=== PATIENT | male | born 1950 | race Caucasian/White ===

== ENCOUNTER 2023-09-01 06:38 | Outpatient (CLI) | payer BC, SELFPAY ==
--- NOTE | 2023-09-01 06:45 | USCV_ITS ---
Burton Aguilar Age: 73 Gender: M : 1950 Exam Date: 09/01/2023 07:55 Ordering Phys: Niraj Garcia MD Technologist: GRAHAM [place] [facility] [place]: LEFT EYE DISTURBANCE Risk Factors: Previous Vascular Surgery: Right Brachial BP: / Left Brachial BP: / Right Left Velocity (cm/s) Spectral Plaque Velocity (cm/s) Spectral Plaque Syst/Diast Broadening Syst/Diast Broadening 108.10/38.70 Prox CCA 79.40 / 18.30 124.50/53.30 Mid CCA 88.10 / 23.20 126.30/49.60 Distal CCA 76.20 / 20.50 161.50/55.90 Prox ICA / 113.00/49.30 Mid ICA / 101.40/43.90 Distal ICA / 115.00 ECA 128.00 1.30 ICA/CCA Antegrade Vertebral Antegrade 46.20/ 18.00 cm/s 58.70/ 22.80 cm/s Tri Subclavian Tri 134.8 97.50 0 CONCLUSIONS LEFT ICA is occluded just distal to bifurcation and remains occluded in the mid and distal segments. CCA is patent Recommend CTA Head and Neck Right ICA stenosis 50-69%. Moderate atheromatous plaque right carotid bulb/ICA. Normal antegrade Doppler flow noted in the right vertebral artery. Normal antegrade Doppler flow noted in the left vertebral artery. Intimal thickening in the common carotid arteries and internal carotid arteries bilaterally. D/w Dr. Troy Garcia at 0845 09/01/23 Mikey Norton MD (Electronically Signed) Final Date: 01 September 2023 08:46 S
== END 2023-09-01 06:39 | disposition home or self-care (01) ==
LOC: RAD 06:38
PROVIDERS: Visit Provider Student in an Organized Health Care Education/Training Program
DX: H34.232 Retinal artery branch occlusion, left eye (principal); I65.23 Occlusion and stenosis of bilateral carotid arteries
CPT/HCPCS: 93880

== ENCOUNTER 2023-09-02 13:15 | Outpatient (CLI) | payer BC, SELFPAY ==
--- NOTE | 2023-09-02 13:38 | CT_ITS ---
WS: [id number] CTA HEAD AND NECK TECHNIQUE: Contrast enhanced CTA of the head and neck with coronal and sagittal reformatted images an d maximum intensity projection (MIP) images. NASCET criteria utilized. CLINICAL INFORMATION: OCCLUSION STENOSIS OF LEFT CAROTID ARTERY COMPARISON: Ultrasound 09/01/2023 DLP: 1268.[address] scans at [facility] use at least one of these dose optimization techniques: automated e xposure control; mA and/or kV adjustment per patient size (includes targeted exams where dose is matc hed to clinical indication); or iterative reconstruction. FINDINGS: No evidence intracranial hemorrhage or mass effect. Ventricular system and basal cisterns a re patent. Normal berman-white differentiation. Paranasal sinuses and mastoid air cells are well aerate d. Normal posterior nasopharynx. RIGHT: RIGHT common carotid artery is patent. No significant RIGHT ICA stenosis. Mild atheromatous pl aque RIGHT carotid bulb extending into the ICA. RIGHT ICA is patent to the skull base. Cavernous salmeron tid artery is patent. LEFT: LEFT common carotid artery is patent. LEFT ICA is occluded at the bifurcation with calcified atheromatous plaque. ECA remains patent. LEFT ICA remains occluded to the skull base. LEFT petrous an d cavernous segments are occluded. Reconstitution of the supraclinoid ICA due to cross-filling via a patent anterior communicating artery. Normal vascularity to the LEFT MCA territory. INTRACRANIAL CTA: Normal vascularity to the TANGELA and MCA territories bilaterally. No evidence of high-grade proximal s tenosis or aneurysm. Codominant and patent vertebral arteries bilaterally. Basilar artery is patent. Normal vascularity to the NEONATOLOGIST territory bilaterally. Fibrosis in the lung apices. Paranasal sinuses and mastoid air cells are well aerated. Moderate spond ylitic changes cervical spine. Slight anterolisthesis C3 on C4. Disc space narrowing worse at C5-C6 a nd C6-C7 with disc osteophyte complexes. CT/CT angio headneck* [id number] IMPRESSION: 1. LEFT ICA is occluded at the origin and remains occluded to the skull base. 2. Reconstitution of the LEFT supraclinoid ICA with normal vascularity to the LEFT MCA territory. Cross-filling via a patent anterior communicating artery. 3. No significant RIGHT ICA stenosis. 4. Codominant and patent vertebral arteries bilaterally. Basilar artery is pat ent. 5. No other acute findings.
[2023-09-02 14:59] LABS: Blood Urea Nitrogen 25 mg/dL (8-23)
[2023-09-02] MEDS: iohexol 350 mg/mL 500 mL Btl (per mL) IV (15:45)
== END 2023-09-02 13:16 | disposition home or self-care (01) ==
LOC: RAD 13:15
PROVIDERS: Visit Provider Ophthalmology
DX: I65.22 Occlusion and stenosis of left carotid artery (principal); H34.232 Retinal artery branch occlusion, left eye; J84.10 Pulmonary fibrosis, unspecified; M47.812 Spondylosis without myelopathy or radiculopathy, cervical region; M25.78 Osteophyte, vertebrae
CPT/HCPCS: 70496; 70498; 82565; 84520; Q9967

== ENCOUNTER 2023-09-25 12:03 | Outpatient (CLI) | payer BC, SELFPAY ==
--- NOTE | 2023-09-25 | ECG_ITS ---
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 Interpretive Statements NAME OF STUDY: TREADMILL STRESS TEST INDICATION: [Dyspena on Exertion] EXERCISE DATA: The patient was exercised by Del protocol. Baseline heart rate was 94 beats per minute. Baseline blood pressure was 157/84 millimeters of mercury. Maximal predicted heart rate was 148 beats per minute. Maximum heart rate achieved was 156, which was 105% of the maximum predicted heart rate. Maximum blood pressure was 205/66 millimeters of mercury. Total exercise time was 8 minutes and 38 seconds. Maximum METs achieved was 10.2. The reason for ending the test was completion of protocol. The patient complained of shortness of breath during the stress test, which then resolved at the end of the test. ELECTROCARDIOGRAM: BASELINE: Showed sinus rhythm, normal axis, no significant ST-T changes at the baseline noted. [] EXERCISE: At the peak exercise level, [] No significant ST-T changes suggestive of ischemia noted. [] RECOVERY: During the recovery period, heart rate dropped appropriately. No significant ST-T changes in the recovery suggestive of ischemia noted. [] CONCLUSION: 1. Exercise capacity excellent. 2. Heart rate response was appropriate 3. Blood pressure response was hypertensive 4. Symptoms not suggestive of ischemia. 5. Stress test not indicative of ischemia Electronically Signed On 10-16-2023 13:40:29 CDT by Donovan Medina M.D. [email or web address]
[2023-09-25 12:15] VITALS: BMI 23.6
[2023-09-25 13:39] VITALS: BP 126/64; PULSE 106
== END 2023-09-25 12:04 | disposition home or self-care (01) ==
LOC: CDL 12:03
PROVIDERS: PCP Family Medicine; Visit Provider Family Medicine
DX: R06.09 Other forms of dyspnea (principal); R94.39 Abnormal result of other cardiovascular function study
CPT/HCPCS: 93017

== ENCOUNTER 2023-12-22 08:14 | Outpatient (CLI) | payer BC, SELFPAY | END 2023-12-22 08:15 | disposition home or self-care (01) | PROVIDERS: PCP Family Medicine; Visit Provider Family Medicine | DX: R06.09 Other forms of dyspnea (principal) | CPT/HCPCS: 94010; 94726; 94729 ==

== ENCOUNTER → 2024-02-25 15:00 | Outpatient (BNVA) | payer BC, SELFPAY | PROVIDERS: PCP Family Medicine; Referring Provider Family Medicine; Visit Provider Internal Medicine | DX: R07.9 Chest pain, unspecified (principal) | CPT/HCPCS: 93005 ==

== ENCOUNTER 2024-03-21 14:05 | Outpatient (CLI) | payer BC, SELFPAY ==
--- NOTE | 2024-03-21 14:15 | USCV_ITS ---
Jeff Burton Age: 73 Gender: M : 1950 Exam Date: 03/21/2024 14:19 Ordering Phys: Donovan Medina M.D ([email or web address]) Technologist: GRAHAM Exam Location: [facility] [place] Indication: CHEST PAIN AND SHORTNESS OF BREATH BP: 130 / 70 HR: 64 Rhythm: Sinus Technical Quality: Adequate MEASUREMENTS (Male / Female) Normal Values 2D ECHO LV Diastolic Diameter PLAX 3.9 cm 4.2 - 5.9 / 3.9 - 5.3 cm IVS Diastolic Thickness 1.1 cm 0.6 - 1.0 / 0.6 - 0.9 cm IVS Systolic Thickness 1.4 cm LVPW Diastolic Thickness 1.4 cm 0.6 - 1.0 / 0.6 - 0.9 cm LVPW Systolic Thickness 1.9 cm LVOT Diameter 2.0 cm LV Ejection Fraction 2D Teich 67.5 % LV Ejection Fraction MOD 4C 53.8 % LV Ejection Fraction MOD 2C 55.6 % LV Ejection Fraction 2C AL 55.5 % LA Diameter 2.9 cm RA Systolic Volume 4C AL 23.9 ml RA Systolic Volume 4C MOD 22.6 ml LA Sys Volume AL 18.4 cm cubed LA Sys Volume Index AL 10.0 cm cubed/m squared Aorta at Sinotubular Diameter 2.3 cm IVC Diameter 0.9 cm M-MODE LA Ao Ratio MM 0.7 AV Cusp Separation MM 2.1 cm DOPPLER AV Peak Velocity 104.0 cm/s LVOT Peak Velocity 73.0 cm/s AV Area Cont Eq vti 2.3 cm squared AV Area Cont Eq pk 2.2 cm squared MV Peak Velocity 93.0 cm/s MV Area PHT 2.3 cm squared Mitral E to A Ratio 1.0 TR Peak Velocity 119.0 cm/s TR Peak Gradient 5.7 mmHg TR Mean Velocity 94.0 cm/s TR Mean Gradient 3.9 mmHg TR Velocity Time Integral 30.7 cm TV Peak E Velocity 41.0 cm/s RV Ejection Time 0.3 s FINDINGS Left Ventricle Technically limited quality echocardiogram because of poor ultrasonic windows. Left ventricle is normal in size. LV systolic function is normal with EF of 50 to 55%. No regional wall motion abnormalities are seen. Right Ventricle Normal in size and function Right Atrium Normal in size. Echogenic structure in the right atrium consistent with eustachian valve. Left Atrium Normal in size Mitral Valve Structurally normal mitral valve. Mild mitral regurgitation. Aortic Valve Structurally normal aortic valve. No significant stenosis or regurgitation. Tricuspid Valve Mild tricuspid regurgitation. Insufficient TR jet to evaluate RVSP. Pulmonic Valve Not well visualized Pericardium Normal Aorta Normal in size IVC Appears to be normal CONCLUSIONS LV systolic function is normal with EF of 50-55% Echogenic structure in the right atrium consistent with eustachian valve. Mild mitral regurgitation Mild tricuspid regurgitation No comparison studies are available. Donovan Medina MD (Electronically Signed) Final Date: 26 March 2024 12:19 S
== END 2024-03-21 14:06 | disposition home or self-care (01) ==
LOC: RAD 14:07
PROVIDERS: PCP Family Medicine; Visit Provider Internal Medicine
DX: R07.9 Chest pain, unspecified (principal); R06.02 Shortness of breath
CPT/HCPCS: 93306